=== PATIENT | male | born 1985 | race Caucasian/White ===

== ENCOUNTER 2016-12-31 20:43 | Emergency (ER) | payer BC ==
[~2016-12-31] VITALS: Ht 180.3 cm; Wt 81.1 kg
[~2016-12-31 20:43] MED LIST: FLUO20CA36 PO; MULT-506 PO
[2016-12-31 20:48] VITALS: TEMP 36.4; Ht 180.3 cm; Wt 81.1 kg
[2016-12-31 21:15] VITALS: O2SAT 98
[2016-12-31] MEDS ORDERED: SODIUM CHLORIDE 0.9% 1000ML 1,000 ML IV STA (21:39)
[2016-12-31] MEDS ORDERED: KETOROLAC TROMETHAMINE 30 MG/ML VIAL IV STA (21:39)
[2016-12-31 21:46] LABS: BASO % 0.4 %; BASO ABS # 0.03 K/uL (0-0.2); COMPLETE YES; EOS % 2.5 %; HEMATOCRIT 42.6 % (42-52); IG% 0.1 %; LYMPH % 36.3 %; LYMPH ABS # 2.61 K/uL (1.2-3.4); MEAN CELL VOLUME 88.6 fL (80-100); MEAN CORPUSCULAR HEMOGLOBIN 30.4 pg (25-34); MEAN CORPUSCULAR HGB CONC 34.3 g/dl (32-36); MEAN PLATELET VOLUME 9.1 fL (7.4-10.4); MONO % 10.3 %; NEUT % 50.4 %; PLATELET COUNT 311 K/uL (130-400); RED BLOOD COUNT 4.81 M/uL (4.7-6.1); WHITE BLOOD COUNT 7.19 K/uL (4.8-10.8)
[2016-12-31 21:55] LABS: BLOOD UREA NITROGEN 18 mg/dl (7-18); BUN/CREATININE RATIO 15.2 (10-20); CARBON DIOXIDE 27 mmol/L (21-32); CHLORIDE 104 mmol/L (98-107); GLUCOSE 109 mg/dl (70-99); POTASSIUM 3.6 mmol/L (3.5-5.1); SODIUM 139 mmol/L (136-145)
--- NOTE | 2016-12-31 21:59 | DIAGNOSTIC IMAGING REPORT ---
CHEST ONE VIEW PORTABLE CLINICAL HISTORY: Atypical chest pain COMPARISON STUDY: No previous studies for comparison. FINDINGS: The cardiac and mediastinal contours are normal. There is no evidence of focal pulmonary consolidation. There is no evidence of failure. No pleural effusions are visualized.[ IMPRESSION: No active disease in the chest. Electronically signed by: Arslan Segundo M.D. 12/31/2016 9:57 PM Dictated Date/Time: 12/31/2016 9:57 PM
[2016-12-31 22:00] LABS: CKMB/CK RATIO 0.5 (0-3.0)
[2016-12-31 22:13] LABS: CALCIUM 9.2 mg/dl (8.5-10.1)
[2016-12-31 23:58] VITALS: BP 149/85; PULSE 64; O2SAT 95
--- NOTE | 2017-01-01 03:03 | EMERGENCY ROOM VISIT NOTE ---
History Report prepared by Sixto: Gideon Gomez Under the Supervision of: Negra RodriguesO. First contact with patient: 21:26 Chief Complaint: CHEST PAIN Stated Complaint: CHEST PAIN/PRESSURE Nursing Triage Summary: patient to ed via triage reports chest pain since yesterday while hiking, states "It just vidhya came on all of a sudden, right in the center of my chest, goes a little into both arms. Its been coming and going since then." Described as an "ache" denies other symptoms History of Present Illness The patient is a 31 year old male who presents to the Emergency Room with complaints of constant chest pain since 1400 yesterday. The patient states that he was hiking and he got pain and tightness in his chest, and it has not gone away though it has changed. The patient states that nothing makes it better or worse. He states that there feels like a pressure in his chest which makes taking a breath feel difficult. The patient denies any hypertension, high cholesterol, diabetes, family history of clots, sudden deaths in his family at a young age, history of clots, swelling in his calfs, recent long trips, history of cancer, smoking, Marfan's or Ke-Danlos syndrome or aortic issues. The patient states that he goes hiking and he exercises regularly. He additionally states that he has random chest pains sometimes. Pt denies headache , change in vision, fevers, arm pain, jaw pain, nausea, vomiting, diarrhea, pain with urination, and melena. Source of History: patient Onset: 1399 yesterday Position: chest Quality: pressure Timing: constant Associated Symptoms: + SOB Review of Systems See HPI for pertinent positives & negatives. A total of 10 systems reviewed and were otherwise negative. Past Medical & Surgical Surgical Problems: (1) Status post labral repair of shoulder Family History Diabetes mellitus FH: cancer FH: heart disease Hypertension Kidney disease Kidney stones Social History Smoking Status: Never Smoker Alcohol Use: occasionally Drug Use: none Marital Status: Occupation Status: employed Current/Historical Medications No Active Prescriptions or Reported Meds Allergies Coded Allergies: Penicillins (Verified Allergy, Unknown, HIVES, 07/23/15) Physical Exam Vital Signs Date Time Temp Pulse Resp B/P Pulse Ox O2 Delivery O2 Flow Rate FiO2 12/31/16 23:58 64 19 149/85 95 12/31/16 23:19 75 18 146/87 95 Room Air 12/31/16 21:31 67 12/31/16 21:15 98 Room Air 12/31/16 20:49 82 Room Air 12/31/16 20:48 36.4 79 20 156/87 96 Room Air Physical Exam GENERAL: Sitting up in bed, alert, well appearing, well nourished, no distress, non-toxic EYE EXAM: normal conjunctiva OROPHARYNX: no exudate, no erythema, lips, buccal mucosa, and tongue normal and mucous membranes are moist NECK: supple, no nuchal rigidity, no adenopathy, non-tender LUNGS: Clear to auscultation. Normal chest wall mechanics HEART: no murmurs, S1 normal and S2 normal CHEST: No reproducible chest wall tenderness. ABDOMEN: abdomen soft, non-tender, normo-active bowel sounds, no masses, no rebound or guarding. BACK: Back is symmetrical on inspection and there is no deformity, no midline tenderness, no CVA tenderness. SKIN: no rashes and no bruising UPPER EXTREMITIES: Radial pulses are equal bilaterally. upper extremities are grossly normal. LOWER EXTREMITIES: Calves are equal bilaterally. No pitting edema. NEURO EXAM: Normal sensorium, cranial nerves II-XII grossly intact, normal speech, no gross weakness of arms, no gross weakness of legs. Gross sensation intact. Medical Decision & Procedures ER Provider Diagnostic Interpretation: Radiology results as stated below per my review and the radiologist's interpretation: CHEST ONE VIEW PORTABLE CLINICAL HISTORY: Atypical chest pain COMPARISON STUDY: No previous studies for comparison. FINDINGS: The cardiac and mediastinal contours are normal. There is no evidence of focal pulmonary consolidation. There is no evidence of failure. No pleural effusions are visualized.[ IMPRESSION: No active disease in the chest. Electronically signed by: Arslan Segundo M.D. 12/31/2016 9:57 PM Dictated Date/Time: 12/31/2016 9:57 PM Laboratory Results 12/31/16 21:15 Red Blood Count 4.81, Mean Corpuscular Volume 88.6, Mean Corpuscular Hemoglobin 30.4, Mean Corpuscular Hemoglobin Concent 34.3, Mean Platelet Volume 9.1, Neutrophils (%) (Auto) 50.4, Lymphocytes (%) (Auto) 36.3, Monocytes (%) (Auto) 10.3, Eosinophils (%) (Auto) 2.5, Basophils (%) (Auto) 0.4, Neutrophils # (Auto ) 3.62, Lymphocytes # (Auto) 2.61, Monocytes # (Auto) 0.74, Eosinophils # (Auto ) 0.18, Basophils # (Auto) 0.03 12/31/16 21:15 Test 12/31/16 21:15 White Blood Count 7.19 K/uL (4.8-10.8) Red Blood Count 4.81 M/uL (4.7-6.1) Hemoglobin 14.6 g/dL (14.0-18.0) Hematocrit 42.6 % (42-52) Mean Corpuscular Volume 88.6 fL (80-100) Mean Corpuscular Hemoglobin 30.4 pg (25-34) Mean Corpuscular Hemoglobin Concent 34.3 g/dl (32-36) Platelet Count 311 K/uL (130-400) Mean Platelet Volume 9.1 fL (7.4-10.4) Neutrophils (%) (Auto) 50.4 % Lymphocytes (%) (Auto) 36.3 % Monocytes (%) (Auto) 10.3 % Eosinophils (%) (Auto) 2.5 % Basophils (%) (Auto) 0.4 % Neutrophils # (Auto) 3.62 K/uL (1.4-6.5) Lymphocytes # (Auto) 2.61 K/uL (1.2-3.4) Monocytes # (Auto) 0.74 K/uL (0.11-0.59) Eosinophils # (Auto) 0.18 K/uL (0-0.5) Basophils # (Auto) 0.03 K/uL (0-0.2) RDW Standard Deviation 39.9 fL (36.4-46.3) RDW Coefficient of Variation 12.4 % (11.5-14.5) Immature Granulocyte % (Auto) 0.1 % Immature Granulocyte # (Auto) 0.01 K/uL (0.00-0.02) D-Dimer < 190 ug/L FEU (0-500) Anion Gap 8.0 mmol/L (3-11) Est Creatinine Clear Calc Drug Dose 95.0 ml/min Estimated GFR () 92.8 Estimated GFR (Non- 80.1 BUN/Creatinine Ratio 15.2 (10-20) Calcium Level 9.2 mg/dl (8.5-10.1) Total Creatine Kinase 244 U/L (39-308) Creatine Kinase MB 1.3 ng/ml (0.5-3.6) Creatine Kinase MB Ratio 0.5 (0-3.0) Troponin I < 0.015 ng/ml (0-0.045) Laboratory results per my review. Medications Administered Medications (Trade) Dose Ordered Sig/Hayden Route Start Time Stop Time Status Last Admin Dose Admin Sodium Chloride (Nss 1000ml) 1,000 ml @ 999 mls/hr Q1H1M STAT IV 12/31/16 21:39 12/31/16 22:39 DC 12/31/16 21:45 999 MLS/HR Ketorolac Tromethamine (Toradol Inj) 30 mg NOW STAT IV 12/31/16 21:39 12/31/16 21:40 DC 12/31/16 21:46 30 MG ECG Indication: chest pain Rate (beats per minute): 75 Rhythm: sinus rhythm Findings: other (Poor basline in the inferior leads, RR' pattern in septal leads) Change: REPEAT EKG: Sinus bradycardia with normal axis and no ectopy ED Course ED COURSE: Vital signs were reviewed and showed normal vitals The patients medical record was reviewed The above diagnostic studies were performed and reviewed. ED treatments and interventions as stated above. 6: The patient was evaluated in room B10. A complete history and physical examination was performed. 2139: Toradol Inj 30mg IV, Sodium Chloride 1000 ml @ 999 mls/hr IV 2317: The patient will be getting a repeat EKG 2346: Upon reevaluation, the patient is feeling well.I discussed my findings with the patient and he understands and agrees with the treatment plan. Based on the patients age, coexisting illnesses, exam and lab findings the decision to treat as an outpatient was made. The patient remained stable while under my care. The patient appeared well at the time of discharge. Medical Decision Differential diagnoses includes but is not limited to acute coronary syndrome, myocardial infarction, pericarditis, pulmonary embolus, aortic dissection, pneumonia, pneumothorax, musculoskeletal, shingles, esophageal. Patient is a 31-year-old male who presents the ER for chest pain which has been present for the past 24 hours. No exacerbating or remitting factors. He has no risk factors for PE and no risk factors for CAD. Troponin was negative with pain greater than 8 hours. D-dimer was negative. Chest x-ray was unremarkable. EKG was normal. Based on his symptoms I do not believe that this is cardiac in etiology. He was updated in regards to this. He is at extremely low risk for PEs as well. Patient was updated and discharged to follow-up with his primary care doctor for these symptoms. Discussed with Pt concerning signs and symptoms to watch out for. Pt was instructed to follow up with their PCP and discussed with the patient their option to return to the ED at anytime for persistent or worsening symptoms. The appropriate anticipatory guidance and out-patient management, including indications for return to the emergency department, were explained at length to the patient and understood. Impression Primary Impression: Precordial chest pain Scribe Attestation The scribe's documentation has been prepared under my direction and personally reviewed by me in its entirety. I confirm that the note above accurately reflects all work, treatment, procedures, and medical decision making performed by me. Departure Information Dispostion Home / Self-Care Prescriptions No Active Prescriptions or Reported Meds Referrals Talha Catherine M.D. (PCP) Forms HOME CARE DOCUMENTATION FORM, IMPORTANT VISIT INFORMATION Patient Instructions Chest Pain - [facility], [facility] Additional Instructions Please follow up with your primary care doctor with in the next 24 hours. Any worsening of your symptoms, please return to the ED immediately. This includes worsening chest pain, passing out, worsening shortness breath, nausea vomiting or any other concerning signs or symptoms from your standpoint.
== END 2016-12-31 23:58 | disposition home or self-care (01) ==
LOC: C.EDB 20:44
DX: R07.2 Precordial pain (principal); R06.02 Shortness of breath

== ENCOUNTER → 2017-06-09 | Outpatient (CLI) | payer BC ==
[2017-06-09 14:10] LABS: BLOOD UREA NITROGEN 17 mg/dl (7-18); BUN/CREATININE RATIO 17.1 (10-20); CALCIUM 9.1 mg/dl (8.5-10.1); CARBON DIOXIDE 26 mmol/L (21-32); CHLORIDE 105 mmol/L (98-107); GLUCOSE 82 mg/dl (70-99); POTASSIUM 4.1 mmol/L (3.5-5.1); SODIUM 138 mmol/L (136-145)
[2017-06-09 14:13] LABS: CHOLESTEROL 186 mg/dl (0-200); CHOLESTEROL/HDL RATIO 4.8; HDL CHOLESTEROL 39 mg/dl; TRIGLYCERIDES 189 mg/dl (0-150); VERY LOW DENSITY LIPOPROT CALC 38 mg/dl
== END | disposition home or self-care (01) ==
LOC: C.LABSPEC 12:35
PROVIDERS: ATTEND Internal Medicine
DX: Z00.00 Encounter for general adult medical examination without abnormal findings (principal)